=== PATIENT | male | born 1990 ===

== ENCOUNTER 2018-01-29 08:44 | Day surgery (SDC) | payer BC ==
[2018-01-29] MEDS ORDERED: Lactated Ringer's 500 ML IV ONE (09:36)
[2018-01-29 09:42] VITALS: O2SAT 100
[2018-01-29] MEDS ORDERED: Propofol 10 mg/ml Inj (20 ML) ONE (10:00)
[2018-01-29 10:57] VITALS: RESP 17; TEMP 97
[2018-01-29 11:09] VITALS: BP 100/71; PULSE 57
== END 2018-01-29 11:41 | disposition home or self-care (01) ==
LOC: H.ENDO 08:44
PROVIDERS: ATTEND Internal Medicine Gastroenterology
DX: K64.8 Other hemorrhoids (principal); K62.5 Hemorrhage of anus and rectum; K29.70 Gastritis, unspecified, without bleeding; D64.9 Anemia, unspecified
CPT/HCPCS: 44361; 45378; 88305; J2001; J2704; J7120

== ENCOUNTER 2018-04-17 12:36 | Emergency (ER) | payer BC ==
[2018-04-17 12:46] VITALS: PULSE 70; RESP 16; TEMP 98.9; O2SAT 99
--- NOTE | 2018-04-17 13:41 | ED PDOC ---
HPI: General Adult Time Seen by Provider: 04/17/18 12:51 Chief Complaint (Nursing): GI Problem Chief Complaint (Provider): Hemorrhoids History Per: Patient History/Exam Limitations: no limitations Onset/Duration Of Symptoms: Days (x2) Current Symptoms Are (Timing): Still Present Additional Complaint(s): 27 year old male presents to the ED for evaluation of hemorrhoid complications. Patient states that he underwent hemorrhoid banding by Dr. Barker two weeks ago in her office, and was told to follow up with any developments of rectal pain or bleeding. He reports two days ago, "heavy rectal bleeding" began only with bowel movements, as he noticed bright red blood mixed in the stool, bowl, and with wiping. Otherwise, denies pain with defecation. PMD: none provided Past Medical History Reviewed: Historical Data, Nursing Documentation, Vital Signs Vital Signs: Last Vital Signs Temp 98.9 F 04/17/18 12:44 Pulse 70 04/17/18 12:44 Resp 16 04/17/18 12:44 BP Pulse Ox 99 04/17/18 14:45 - Medical History Other PMH: hemorrhoids - Surgical History Other surgeries: hemorrhoid banding - Family History Family History: States: Unknown Family Hx - Home Medications Home Medications: Ambulatory Orders Medication Instructions Recorded Docusate Sodium [Colace] 100 mg PO DAILY #10 capsule 04/17/18 - Allergies Allergies/Adverse Reactions: Allergies Allergy/AdvReac Type Severity Reaction Status Date / Time No Known Allergies Allergy Verified 01/29/18 09:38 Review of Systems ROS Statement: Except As Marked, All Systems Reviewed And Found Negative Gastrointestinal: Positive for: Other (heavy rectal bleeding). Negative for: Rectal Pain Physical Exam - Reviewed Nursing Documentation Reviewed: Yes Vital Signs Reviewed: Yes - Physical Exam Comments: PE deferred to GI fellow. - Laboratory Results Result Diagrams: 04/17/18 15:02 - ECG O2 Sat by Pulse Oximetry: 99 (RA) Pulse Ox Interpretation: Normal Medical Decision Making Medical Decision Making: Time: 1318 Initial Impression: s/p hemorrhoid banding complications Initial Plan: --Consult placed to [facility]. 1350 PE is deferred to GI fellow, who is with patient at this time. See notes. 1440 CBC with differential ordered at this time as per GI fellow who is requesting it. Hgb stable at 10 Pt advised high fiber diet, refrain from straining during BM if possible. RX colace and increase water intake follow up with Dr. Barker as scheduled. Scribe Attestation: Documented by Lisa Damon, acting as a scribe for Lucille Lizarraga PA-C. Provider Scribe Attestation: All medical record entries made by the Scribe were at my direction and personally dictated by me. I have reviewed the chart and agree that the record accurately reflects my personal performance of the history, physical exam, medical decision making, and the department course for this patient. I have also personally directed, reviewed, and agree with the discharge instructions and disposition. Disposition - Clinical Impression Clinical Impression: Rectal bleeding - Patient ED Disposition Is Patient to be Admitted: No - Disposition Referrals: Lydia Barker MD [Medical Doctor] - Disposition: Routine/Home Disposition Time: 15:45 Condition: STABLE Prescriptions: Docusate Sodium [Colace] 100 mg PO DAILY #10 capsule Instructions: Bloody Stools Forms: [employer] (Chinese)
[2018-04-17 15:11] LABS: BASO % 0.5 % (0.0-2.0); EOS # 0.1 K/uL (0.0-0.7); EOS % 1.8 % (0.0-4.0); LYMPH # 1.2 K/uL (1.0-4.3); LYMPH % 23.2 % (20.0-40.0); MEAN CELL VOLUME 68.4 fl (80.0-94.0); MEAN CORPUSCULAR HEMOGLOBIN 21.2 pg (27.0-31.0); MEAN PLATELET VOLUME 7.9 fl (7.2-11.7); MONO # 0.4 K/uL (0.0-0.8); MONO % 8.8 % (0.0-10.0); NEUT # 3.3 K/uL (1.8-7.0); NEUT % 65.7 % (50.0-75.0); RBC 4.73 Mil/uL (4.40-5.90)
== END 2018-04-17 15:42 | disposition home or self-care (01) ==
LOC: H.ER 12:36
DX: K62.5 Hemorrhage of anus and rectum (principal)